=== PATIENT | male | born 1995 | race Two or more races ===

== ENCOUNTER 2020-02-05 08:33 | Emergency (ER) | payer OTHER ==
[~2020-02-05] VITALS: Ht 180.3 cm; Wt 90.9 kg
[2020-02-05 08:52] VITALS: BP 139/89
[2020-02-05] MEDS ORDERED: OXYcodone/APAP 5/325MG TABLET ONE (09:16)
[2020-02-05] MEDS ORDERED: OXYcodone/APAP 5/325MG TABLET PO ONE (09:30)
== END 2020-02-05 10:35 | disposition home or self-care (01) ==
LOC: ED 10:11
DX: S93.492A Sprain of other ligament of left ankle, initial encounter (principal); X50.1XXA Overexertion from prolonged static or awkward postures, initial encounter; Y93.41 Activity, dancing; Y92.89 Other specified places as the place of occurrence of the external cause; Y99.8 Other external cause status
CPT/HCPCS: 99284